=== PATIENT | male | born 1980 ===

== ENCOUNTER 2019-03-18 14:42 | Inpatient (IN) | payer OTHER ==
[~2019-03-18 14:42] MED LIST: ISOVUE-370 76%-LOCM 1 ML ONE
[2019-03-18 16:07] LABS: Hemoglobin 14.3 g/dL (14.0-18.0); Mean Corpuscular HGB CONC 33.5 g/dL (32.0-36.0); Mean Corpuscular Hemoglobin 30.5 pg (27.0-31.0); Mean Corpuscular Volume 91.2 fL (78.0-98.0); Mean Platelet Volume 7.7 fL (7.4-10.4); Platelet Count 417 thou/uL (130-400); White Blood Cell (WBC) Count 24.4 thou/uL (4.8-10.8)
[2019-03-18 16:15] LABS: Bilirubin Negative (Negative); Blood, Urine Negative (Negative); Clarity Clear (Clear); Glucose, Urine (Dipstick) 100 mg/dL (Negative); Leukocyte Negative (Negative); Nitrite Negative (Negative); Protein, Urine (Dipstick) 30 mg/dL (Neg-Trace); Urobilinogen > or = 8.0 mg/dL (0.2-1.0)
[2019-03-18 16:21] LABS: ALT (SGPT) 27 U/L (8-55); AST (SGOT) 18 U/L (5-34); Albumin 3.9 g/dL (3.5-5.0); Alkaline Phosphatase 82 U/L (40-150); Anion Gap 12 mmol/L (10-20); BUN (Urea Nitrogen) 13 mg/dL (8.9-20.6); Bilirubin, Total 1.4 mg/dL (0.2-1.2); Calc. Creatinine Clearance 0 mL/min (70-130); Calcium 9.8 mg/dL (7.8-10.44); Carbon Dioxide 29 mmol/L (22-29); Chloride 103 mmol/L (98-107); Estimated GFR-MDRD 74; Globulin 4.1 g/dL (2.4-3.5); Glucose 89 mg/dL (70-105); Lipase 7 U/L (8-78); Potassium 4.5 mmol/L (3.5-5.1); Sodium 139 mmol/L (136-145)
[2019-03-18 16:24] LABS: RBC/HPF 0-3 HPF (0-3); WBC/HPF 0-3 HPF (0-3)
[2019-03-18 16:25] LABS: Bacteria/HPF None Seen HPF (None Seen); Hyaline Casts/LPF NONE SEEN LPF (0-3 Hyaline); Squamous Epithelial None Seen HPF (0-3)
[2019-03-18 16:28] LABS: Band 15 % (5-11); Lymphocytes 16 % (21-51); MDiff Complete? YES; Monocytes 3 % (0-10); Neutrophil 66 % (42-75); Platelet Morphology Comment Appears Increased
[2019-03-18] MEDS ORDERED: Ondansetron PF 4 MG/2 ML Vial ONE (17:12)
[2019-03-18] MEDS ORDERED: Ketorolac Tromethamine 30 MG/ML VIAL ONE (17:12)
--- NOTE | 2019-03-18 17:13 | CT ---
CT abdomen and pelvis with IV contrast HISTORY: Abdominal pain. Weakness. Fever. FINDINGS: Lung bases are clear. The left kidney and spleen are surgically absent. There are also post operative changes of the anterior abdominal wall. Metallic shrapnel in the left flank subcutaneous tissues. Centered deep within the anterior midline abdominal wall at the level of the umbilicus is a lobulated , moderately thick walled fluid collection containing a single tiny pocket of gas. It measures 4.3 cm length by 4.6 cm depth by 4.2 cm width and abuts the peritoneum. It does not extend into the abdom inal cavity. IMPRESSION: Anterior abdominal wall abscess, 4.6 cm, abutting the peritoneum but not extending into t he abdomen. Status post splenectomy and left nephrectomy.
[2019-03-18] MEDS ORDERED: MEROPENEM 1 GM/50 ML BAG IVPB SCH (17:45)
[2019-03-18] MEDS ORDERED: Morphine 4 MG/ML VIAL ONE (18:10)
[2019-03-18] MEDS ORDERED: Ondansetron PF 4 MG/2 ML Vial IVP PRN ×2 (19:32→21:34)
[2019-03-18] MEDS ORDERED: Acetaminophen 325 MG TAB PO PRN ×2 (19:32→21:34)
[2019-03-18] MEDS ORDERED: Ondansetron ODT 4 MG TAB SL PRN (19:32)
[2019-03-18] MEDS ORDERED: Sodium Chloride 0.9% 1,000 ML IV SCH (19:32)
[2019-03-18] MEDS ORDERED: Morphine 4 MG/ML VIAL SLOW IVP PRN (19:36)
[2019-03-18 20:00] VITALS: BMI 30.7
[2019-03-18] MEDS ORDERED: Ondansetron ODT 4 MG TAB PO PRN (21:34)
[2019-03-18] MEDS ORDERED: Senokot S 8.6-50 MG TAB PO PRN (21:34)
[2019-03-18] MEDS ORDERED: Calcium Carbonate 500 MG ChewTAB PO PRN (21:34)
[2019-03-18] MEDS ORDERED: Vancomycin HCl 1 GM in Premix Bag 1 BAG IVPB SCH (21:45)
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
[2019-03-18] MEDS: Sodium Chloride 0.9% 1,000 ML IV SCH (22:13)
[2019-03-18] MEDS: Piperacillin/Tazobactam 3.375 GM in Sodium Chloride 0.9% 100 ML IVPB SCH (22:24)
[2019-03-18] MEDS: Ketorolac Tromethamine 30 MG/ML VIAL IVP PRN (22:27)
[2019-03-18] MEDS ORDERED: Vancomycin HCl 2.5 GM in Sodium Chloride 0.9% 500 ML IVPB SCH (23:00)
[2019-03-19] MEDS: Morphine 2 MG/ML SYRINGE SLOW IVP PRN ×2 (00:11→04:14)
[2019-03-19] MEDS ORDERED: MEROPENEM 1 GM/50 ML 1 GM in Premix Bag 1 BAG IVPB SCH (02:00)
[2019-03-19] MEDS: Piperacillin/Tazobactam 3.375 GM in Sodium Chloride 0.9% 100 ML IVPB SCH ×4 (04:13→21:05)
[2019-03-19 04:47] LABS: Prothrombin Time 13.7 SEC (12.0-14.7)
[2019-03-19 04:48] LABS: PTT 31.8 SEC (22.9-36.1)
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
[2019-03-19 05:21] LABS: Band 4 % (5-11); Eosinophils 1 % (0-10); Hemoglobin 12.8 g/dL (14.0-18.0); Lymphocytes 34 % (21-51); MDiff Complete? YES; Mean Corpuscular HGB CONC 33.1 g/dL (32.0-36.0); Mean Corpuscular Hemoglobin 30.4 pg (27.0-31.0); Mean Corpuscular Volume 91.9 fL (78.0-98.0); Mean Platelet Volume 7.9 fL (7.4-10.4); Monocytes 9 % (0-10); Neutrophil 52 % (42-75); Platelet Count 375 thou/uL (130-400); RBC Distribution Width 12.1 % (11.5-14.5); Red Blood Cell (RBC) Count 4.21 mill/uL (4.70-6.10); White Blood Cell (WBC) Count 22.9 thou/uL (4.8-10.8)
[2019-03-19 05:28] LABS: ALT (SGPT) 20 U/L (8-55); AST (SGOT) 13 U/L (5-34); Albumin 3.1 g/dL (3.5-5.0); Alkaline Phosphatase 73 U/L (40-150); Anion Gap 12 mmol/L (10-20); BUN (Urea Nitrogen) 14 mg/dL (8.9-20.6); Calc. Creatinine Clearance 138 mL/min (70-130); Carbon Dioxide 23 mmol/L (22-29); Chloride 105 mmol/L (98-107); Estimated GFR-MDRD 79; Globulin 3.1 g/dL (2.4-3.5); Glucose 113 mg/dL (70-105); Potassium 3.9 mmol/L (3.5-5.1); Protein, Total 6.2 g/dL (6.0-8.3); Sodium 136 mmol/L (136-145)
[2019-03-19] MEDS ORDERED: Bisacodyl 10 MG SUPP PR PRN (08:20)
[2019-03-19] MEDS ORDERED: Artificial Tears 18 DROP/0.9 ML EA EYE PRN (08:20)
[2019-03-19] MEDS ORDERED: Diabetic Tussin 200 MG/10 ML UDCUP PO PRN (08:20)
[2019-03-19] MEDS ORDERED: hydrALAZINE 20 MG/ML VIAL SLOW IVP PRN (08:20)
[2019-03-19] MEDS ORDERED: Cepastat Lozenges 1 LOZ PO PRN (08:20)
[2019-03-19] MEDS ORDERED: Loratadine 10 MG TAB PO PRN (08:20)
[2019-03-19] MEDS ORDERED: Sodium Chloride 0.65% Nasal 44 ML BOT EA NARE PRN (08:20)
[2019-03-19] MEDS: Ketorolac Tromethamine 30 MG/ML VIAL IVP PRN (08:55)
[2019-03-19] MEDS: Saccharomyces boulardii 250 MG CAP PO SCH (08:59)
[2019-03-19] MEDS: Morphine 4 MG/ML VIAL SLOW IVP PRN ×2 (09:38→22:45)
[2019-03-19] MEDS ORDERED: Fentanyl 100 MCG/2 ML VIAL ONE (10:25)
[2019-03-19] MEDS ORDERED: Sodium Bicarbonate 2.5 MEQ/5 ML VIAL ONE (10:25)
[2019-03-19] MEDS ORDERED: Midazolam HCl 2 mg/2 ml Vial ONE (10:25)
--- NOTE | 2019-03-19 11:12 | PDOC.GSPN ---
Surgery Progress Note: Subj - Subjective Narrative: Stable overnight. Going for percutaneous aspiration versus drain placement today. White count slightly down. No new recommendations. We'll follow-up after drain placement. Surgery Progress Note: Obj - Vital signs Vital signs: Vital Signs - Most Recent Temp Pulse Resp BP Pulse Ox 98.7 F 80 20 123/61 96 03/19/19 08:00 03/19/19 08:00 03/19/19 08:00 03/19/19 08:00 03/19/19 08:00 Surgery Progress Note: Results - Labs Result Diagrams: 03/19/19 04:04 03/19/19 04:04 Lab results: Laboratory Results - last 24 hr 03/19/19 03/19/19 03/19/19 04:04 04:04 04:04 WBC 22.9 H RBC 4.21 L Hgb 12.8 L Hct 38.7 L MCV 91.9 MCH 30.4 MCHC 33.1 RDW 12.1 Plt Count 375 MPV 7.9 Neutrophils % (Manual) 52 Band Neuts % (Manual) 4 L Lymphocytes % (Manual) 34 Monocytes % (Manual) 9 Eosinophils % (Manual) 1 PT 13.7 INR 1.0 APTT 31.8 Sodium 136 Potassium 3.9 Chloride 105 Carbon Dioxide 23 Anion Gap 12 BUN 14 Creatinine 1.06 Estimated GFR (MDRD) 79 Glucose 113 H Calcium 8.0 Total Bilirubin 1.0 AST 13 ALT 20 Alkaline Phosphatase 73 Serum Total Protein 6.2 Albumin 3.1 L Globulin 3.1 Albumin/Globulin Ratio 1.0 L
[2019-03-19] MEDS: Vancomycin HCl 1.5 GM in Sodium Chloride 0.9% 250 ML 300 ML IVPB SCH ×2 (11:15→22:40)
[2019-03-19] MEDS: Sodium Chloride 0.9% 1,000 ML IV SCH ×2 (11:18→21:12)
--- NOTE | 2019-03-19 11:48 | PDOC.PN ---
- Subjective Encounter Start Date: 03/19/19 Encounter Start Time: 07:00 -: old records requested/rev pt has abdominal wall cellulitis and abscess, he has pain at that location, no fever, his wbc count is reduced - Objective Resuscitation Status - Order Detail: 03/18/19 21:34 Resuscitation Status Routine Resuscitation Status: FULL: Full Resuscitation MAR Reviewed: Yes Vital Signs & Weight: Vital Signs (12 hours) Temp Pulse Resp BP Pulse Ox 03/19/19 08:00 98.7 F 80 20 123/61 96 03/19/19 04:30 99.4 F 91 18 125/58 L 95 03/19/19 00:24 98.4 F 77 18 124/68 97 Weight Weight 226 lb 3.108 oz I&O: 03/18/19 03/19/19 03/20/19 06:59 06:59 06:59 Intake Total 1934 Balance 1934 Result Diagrams: 03/19/19 04:04 03/19/19 04:04 Radiology Reviewed by me: Yes (CT abdomen noted) Phys Exam - Physical Examination Constitutional: NAD HEENT: moist MMs, sclera anicteric Neck: no JVD, supple Respiratory: no wheezing, no rales, no rhonchi Cardiovascular: RRR, no significant murmur, no rub Gastrointestinal: soft, no distention, positive bowel sounds abdominal wall cellulitis and abscess Musculoskeletal: no edema, pulses present Neurological: non-focal, normal sensation, moves all 4 limbs Lymphatic: no nodes Psychiatric: normal affect, A&O x 3 Skin: no rash, normal turgor Dx/Plan (1) Cellulitis, abdominal wall Code(s): L03.311 - CELLULITIS OF ABDOMINAL WALL Status: Acute (2) Sepsis Code(s): A41.9 - SEPSIS, UNSPECIFIED ORGANISM Status: Acute (3) Diabetes type 2, controlled Code(s): E11.9 - TYPE 2 DIABETES MELLITUS WITHOUT COMPLICATIONS Status: Chronic (4) Obesity (BMI 30.0-34.9) Code(s): E66.9 - OBESITY, UNSPECIFIED Status: Chronic - Plan cont current plan of care, continue antibiotics * pt had CT guided drain placement * surgery following * continue empiric vancomycin and zosyn * pain control * repeat labs tomorrow. Review of Systems - Review of Systems ENT: negative: Ear Pain, Ear Discharge, Nose Pain, Nose Discharge, Nose Congestion, Mouth Pain, Mouth Swelling, Throat Pain, Throat Swelling, Other Respiratory: negative: Cough, Dry, Shortness of Breath, Hemoptysis, SOB with Excertion, Pleuritic Pain, Sputum, Wheezing Cardiovascular: negative: chest pain, palpitations, orthopnea, paroxysmal nocturnal dyspnea, edema, light headedness, other Gastrointestinal: Abdominal Pain. negative: Nausea, Vomiting, Diarrhea, Constipation, Melena, Hematochezia, Other Genitourinary: negative: Dysuria, Frequency, Incontinence, Hematuria, Retention , Other Musculoskeletal: negative: Neck Pain, Shoulder Pain, Arm Pain, Back Pain, Hand Pain, Leg Pain, Foot Pain, Other Skin: negative: Rash, Lesions, [place], Bruising, Other - Medications/Allergies Allergies/Adverse Reactions: Allergies Allergy/AdvReac Type Severity Reaction Status Date / Time clindamycin Allergy Emesis Verified 03/19/19 11:14 Medications: Current Medications Acetaminophen (Tylenol) 650 mg PO Q4H PRN PRN Reason: Headache/Fever/Mild Pain (1-3) Hydrocodone Bitart/Acetaminophen ([place] 5/325) 1 tab PO Q4H PRN PRN Reason: Moderate Pain (4-6) Artificial Tears (Tears Naturale) 2 drop EA EYE PRN PRN PRN Reason: Dry Eyes Bisacodyl (Dulcolax) 10 mg DC DAILYPRN PRN PRN Reason: Constipation Calcium Carbonate (Tums) 1,000 mg PO Q4H PRN PRN Reason: Heartburn or Indigestion Guaifenesin (Robitussin Sf) 200 mg PO Q4H PRN PRN Reason: Cough Hydralazine HCl (Apresoline) 10 mg SLOW IVP Q4H PRN PRN Reason: SBP > 180 and HR < 70 Sodium Chloride (Normal Saline 0.9%) 1,000 mls @ 75 mls/hr IV .[id number] [facility] Last Admin: 03/19/19 11:18 Dose: Not Given Piperacillin Sod/Tazobactam (Sod 3.375 gm/ Sodium Chloride) 100 mls @ 200 mls/ hr IVPB 0400,1000,1600,2200 [facility] Last Admin: 03/19/19 09:39 Dose: 100 mls Vancomycin HCl 1.5 gm/ Sodium (Chloride) 300 mls @ 200 mls/hr IVPB 1100,2300 [facility] Last Admin: 03/19/19 11:15 Dose: 300 mls Loperamide HCl (Imodium) 2 mg PO PRN PRN PRN Reason: Diarrhea/Loose Stools Loratadine (Claritin) 10 mg PO DAILYPRN PRN PRN Reason: Sinus Symptoms Miscellaneous Medication (Pharmacy To Dose) 1 each IVPB PRN PRN PRN Reason: Pharmacy to dose Morphine Sulfate (Morphine) 4 mg SLOW IVP Q4H PRN PRN Reason: Severe Pain (7-10) Last Admin: 03/19/19 09:38 Dose: 4 mg Ondansetron HCl (Zofran Odt) 4 mg PO Q6H PRN PRN Reason: Nausea/Vomiting Ondansetron HCl (Zofran) 4 mg IVP Q6H PRN PRN Reason: Nausea/Vomiting Saccharomyces Boulardii (Florastor) 250 mg PO DAILY [facility] Last Admin: 03/19/19 08:59 Dose: Not Given Senna/Docusate Sodium (Senokot S) 2 tab PO BID PRN PRN Reason: Constipation Sodium Chloride (Flush - Normal Saline) 10 ml IVF Q12HR [facility] Last Admin: 03/19/19 08:59 Dose: 10 ml Sodium Chloride (Flush - Normal Saline) 10 ml IVF PRN PRN PRN Reason: Saline Flush Sodium Chloride ([place] Nasal [place] 0.65%) 0 ml EA NARE QIDPRN PRN PRN Reason: Nasal Congestion Throat Lozenges (Cepastat Lozenges) 1 sumeet PO Q2H PRN PRN Reason: Sore Throat Zolpidem Tartrate (Ambien) 5 mg PO HSPRN PRN PRN Reason: Insomnia
--- NOTE | 2019-03-19 11:52 | CT ---
EXAM: CT Peritoneal Abscess Drainage PROVIDED CLINICAL HISTORY: Anterior abdominal wall abscess. Drainage was requested COMPARISON: CT abdomen and pelvis on 03/18/2019. TECHNIQUE: After informed consent was obtained, patient was placed on the CT scan table in the supine position. Limited noncontrasted CT scan was obtained through the level of the abdominal wall fluid collection with grid localizer in place. An area was marked, and the area was then meticulously prepped and drap ed in usual sterile fashion. Skin and subcutaneous tissues were infiltrated with buffered 1% lidocaine for local anesthesia. A sma ll skin incision was made. A 19-gauge [place]h needle with 5 [place] catheter was advanced into the collection. Placement of the catheter within the fluid collection was confirmed with axial noncontras suzanne CT images. The catheter was exchanged over a 0.035 inch Amplatz guidewire for an 8 [place] tissue dilator followe d by placement of a 6 [place] cope loop all-purpose drainage catheter. Purulent material was aspirated. Positioning of the catheter within the collection was confirmed with axial noncontrasted C T images. Approximately 25 mL of purulent material was aspirated. The catheter was flushed and placed to gravity drainage. The catheter was sutured in place utilizing 2-0 Ethilon suture material. A dry sterile dressing was placed. The patient tolerated the procedure well and without immediate complication. IMPRESSION: Technically successful CT-guided percutaneous abscess drainage of an abdominal wall fluid collection. 25 mL of purulent fluid was aspirated. Specimen was sent for labs.
[2019-03-19 12:08] LABS: Body Fluid Source Abscess Fluid; Clarity Cloudy/Turbid (Clear)
[2019-03-19 12:09] LABS: BF Color Brown; Tube # EDTA
[2019-03-19] MEDS: HYDROcodone/Acetaminophen 5/325 mg Tablet PO PRN (16:28)
[2019-03-20] MEDS: Zolpidem Tartrate 5 MG TAB PO PRN ×2 (00:04→21:29)
[2019-03-20] MEDS: Morphine 4 MG/ML VIAL SLOW IVP PRN ×4 (04:33→21:29)
[2019-03-20] MEDS: Piperacillin/Tazobactam 3.375 GM in Sodium Chloride 0.9% 100 ML IVPB SCH ×4 (04:39→21:28)
[2019-03-20 05:11] LABS: Band 5 % (5-11); Eosinophils 6 % (0-10); Hemoglobin 12.2 g/dL (14.0-18.0); Lymphocytes 40 % (21-51); MDiff Complete? YES; Mean Corpuscular HGB CONC 32.8 g/dL (32.0-36.0); Mean Corpuscular Volume 91.4 fL (78.0-98.0); Mean Platelet Volume 7.7 fL (7.4-10.4); Monocytes 4 % (0-10); Neutrophil 45 % (42-75); Platelet Count 394 thou/uL (130-400); Platelet Morphology Comment Appears Adequate; RBC Distribution Width 11.9 % (11.5-14.5); Red Blood Cell (RBC) Count 4.08 mill/uL (4.70-6.10); White Blood Cell (WBC) Count 16.7 thou/uL (4.8-10.8)
[2019-03-20 05:33] LABS: BUN (Urea Nitrogen) 12 mg/dL (8.9-20.6); CRP (Inflammatory) 10.47 mg/dL (= or < 0.5); Calc. Creatinine Clearance 171 mL/min (70-130); Calcium 7.8 mg/dL (7.8-10.44); Carbon Dioxide 22 mmol/L (22-29); Chloride 107 mmol/L (98-107); Estimated GFR-MDRD Greater than 90; Glucose 137 mg/dL (70-105); Potassium 3.8 mmol/L (3.5-5.1); Sodium 135 mmol/L (136-145)
[2019-03-20 05:36] LABS: Anion Gap 10 mmol/L (10-20)
[2019-03-20] MEDS: Saccharomyces boulardii 250 MG CAP PO SCH (09:02)
[2019-03-20 10:28] LABS: Vancomycin, Trough 13.9 ug/mL
--- NOTE | 2019-03-20 11:09 | PDOC.PN ---
- Subjective Encounter Start Date: 03/20/19 Encounter Start Time: 07:00 Patient seen and examined. No new complaints. No overnight events - Objective Resuscitation Status - Order Detail: 03/18/19 21:34 Resuscitation Status Routine Resuscitation Status: FULL: Full Resuscitation MAR Reviewed: Yes Vital Signs & Weight: Vital Signs (12 hours) Temp Pulse Resp BP Pulse Ox 03/20/19 08:00 97 03/20/19 07:35 98.7 F 75 16 102/57 L 97 03/20/19 07:03 98.7 F 75 16 102/57 L 97 03/20/19 05:31 95 03/20/19 04:00 99.1 F 78 16 135/79 94 L 03/19/19 23:50 99.1 F 79 16 127/69 98 Weight Weight 226 lb 3.108 oz I&O: 03/19/19 03/20/19 03/21/19 06:59 06:59 06:59 Intake Total 1935 1800 Output Total 50 Balance 1935 1750 Result Diagrams: 03/20/19 04:18 03/20/19 04:18 Phys Exam - Physical Examination Constitutional: NAD HEENT: PERRLA, moist MMs, sclera anicteric Neck: no JVD, supple Respiratory: no wheezing, no rales, no rhonchi Cardiovascular: RRR, no significant murmur, no rub Gastrointestinal: soft, non-tender, no distention, positive bowel sounds drain in place Musculoskeletal: no edema, pulses present Neurological: non-focal, normal sensation, moves all 4 limbs Lymphatic: no nodes Psychiatric: normal affect, A&O x 3 Skin: no rash, normal turgor Dx/Plan (1) Cellulitis, abdominal wall Code(s): L03.311 - CELLULITIS OF ABDOMINAL WALL Status: Acute Comment: with abscess, s/p CT guiaded abscess drainage (2) Sepsis Code(s): A41.9 - SEPSIS, UNSPECIFIED ORGANISM Status: Acute (3) Diabetes type 2, controlled Code(s): E11.9 - TYPE 2 DIABETES MELLITUS WITHOUT COMPLICATIONS Status: Chronic (4) Obesity (BMI 30.0-34.9) Code(s): E66.9 - OBESITY, UNSPECIFIED Status: Chronic - Plan cont current plan of care, continue antibiotics * wbc count decreasing, his pain improving, so far culture from aspiration negative, currently on empiric antibiotic with vancomycin and zosyn * medication reviewed as below * symptomatic treatment * follow culture. Review of Systems - Review of Systems ENT: negative: Ear Pain, Ear Discharge, Nose Pain, Nose Discharge, Nose Congestion, Mouth Pain, Mouth Swelling, Throat Pain, Throat Swelling, Other Respiratory: negative: Cough, Dry, Shortness of Breath, Hemoptysis, SOB with Excertion, Pleuritic Pain, Sputum, Wheezing Cardiovascular: negative: chest pain, palpitations, orthopnea, paroxysmal nocturnal dyspnea, edema, light headedness, other Gastrointestinal: negative: Nausea, Vomiting, Abdominal Pain, Diarrhea, Constipation, Melena, Hematochezia, Other Genitourinary: negative: Dysuria, Frequency, Incontinence, Hematuria, Retention , Other Musculoskeletal: negative: Neck Pain, Shoulder Pain, Arm Pain, Back Pain, Hand Pain, Leg Pain, Foot Pain, Other - Medications/Allergies Allergies/Adverse Reactions: Allergies Allergy/AdvReac Type Severity Reaction Status Date / Time clindamycin Allergy Emesis Verified 03/19/19 11:14 Medications: Current Medications Acetaminophen (Tylenol) 650 mg PO Q4H PRN PRN Reason: Headache/Fever/Mild Pain (1-3) Hydrocodone Bitart/Acetaminophen ([place] 5/325) 1 tab PO Q4H PRN PRN Reason: Moderate Pain (4-6) Last Admin: 03/19/19 16:28 Dose: 1 tab Artificial Tears (Tears Naturale) 2 drop EA EYE PRN PRN PRN Reason: Dry Eyes Bisacodyl (Dulcolax) 10 mg AL DAILYPRN PRN PRN Reason: Constipation Calcium Carbonate (Tums) 1,000 mg PO Q4H PRN PRN Reason: Heartburn or Indigestion Guaifenesin (Robitussin Sf) 200 mg PO Q4H PRN PRN Reason: Cough Hydralazine HCl (Apresoline) 10 mg SLOW IVP Q4H PRN PRN Reason: SBP > 180 and HR < 70 Sodium Chloride (Normal Saline 0.9%) 1,000 mls @ 75 mls/hr IV .[id number] [facility] Last Admin: 03/19/19 21:12 Dose: 1,000 mls Piperacillin Sod/Tazobactam (Sod 3.375 gm/ Sodium Chloride) 100 mls @ 200 mls/ hr IVPB 0400,1000,1600,2200 [facility] Last Admin: 03/20/19 09:03 Dose: 100 mls Vancomycin HCl 1.5 gm/ Sodium (Chloride) 300 mls @ 200 mls/hr IVPB 1100,2300 [facility] Last Admin: 03/19/19 22:40 Dose: 300 mls Loperamide HCl (Imodium) 2 mg PO PRN PRN PRN Reason: Diarrhea/Loose Stools Loratadine (Claritin) 10 mg PO DAILYPRN PRN PRN Reason: Sinus Symptoms Miscellaneous Medication (Pharmacy To Dose) 1 each IVPB PRN PRN PRN Reason: Pharmacy to dose Morphine Sulfate (Morphine) 4 mg SLOW IVP Q4H PRN PRN Reason: Severe Pain (7-10) Last Admin: 03/20/19 09:09 Dose: 4 mg Ondansetron HCl (Zofran Odt) 4 mg PO Q6H PRN PRN Reason: Nausea/Vomiting Ondansetron HCl (Zofran) 4 mg IVP Q6H PRN PRN Reason: Nausea/Vomiting Saccharomyces Boulardii (Florastor) 250 mg PO DAILY [facility] Last Admin: 03/20/19 09:02 Dose: 250 mg Senna/Docusate Sodium (Senokot S) 2 tab PO BID PRN PRN Reason: Constipation Sodium Chloride (Flush - Normal Saline) 10 ml IVF Q12HR [facility] Last Admin: 03/20/19 09:03 Dose: 10 ml Sodium Chloride (Flush - Normal Saline) 10 ml IVF PRN PRN PRN Reason: Saline Flush Last Admin: 03/19/19 21:17 Dose: 10 ml Sodium Chloride ([place] Nasal [place] 0.65%) 0 ml EA NARE QIDPRN PRN PRN Reason: Nasal Congestion Throat Lozenges (Cepastat Lozenges) 1 sumeet PO Q2H PRN PRN Reason: Sore Throat Zolpidem Tartrate (Ambien) 5 mg PO HSPRN PRN PRN Reason: Insomnia Last Admin: 03/20/19 00:04 Dose: 5 mg
[2019-03-20] MEDS: Vancomycin HCl 1.5 GM in Sodium Chloride 0.9% 250 ML 300 ML IVPB SCH ×2 (11:19→22:35)
[2019-03-20] MEDS: HYDROcodone/Acetaminophen 5/325 mg Tablet PO PRN (12:51)
[2019-03-20] MEDS: Sodium Chloride 0.9% 1,000 ML IV SCH (18:06)
--- NOTE | 2019-03-20 20:39 | PDOC.GSPN ---
Surgery Progress Note: Subj - Subjective Narrative: Patient is doing well since having his drain placed. He is not having much pain. The nurses or flushing the drain and there hasn't been much output. No fevers or chills. White count is down. He has much less tenderness in the central abdomen and the erythema seems to be resolving. We will continue with antibiotics and drainage. Dr. Gaines will be covering over the weekend. Surgery Progress Note: Obj - Vital signs Vital signs: Vital Signs - Most Recent Temp Pulse Resp BP Pulse Ox 98.4 F 72 16 121/67 96 03/20/19 19:05 03/20/19 19:05 03/20/19 19:05 03/20/19 19:05 03/20/19 19:05 Surgery Progress Note: Results - Labs Result Diagrams: 03/20/19 04:18 03/20/19 04:18 Lab results: Laboratory Results - last 24 hr 03/20/19 10:01 Vancomycin Trough 13.9
[2019-03-20] MEDS: Loperamide HCl 2 MG CAP PO PRN (21:29)
[2019-03-21] MEDS: HYDROcodone/Acetaminophen 5/325 mg Tablet PO PRN ×5 (01:22→23:06)
[2019-03-21] MEDS: Morphine 4 MG/ML VIAL SLOW IVP PRN ×2 (02:09→21:07)
[2019-03-21] MEDS: Piperacillin/Tazobactam 3.375 GM in Sodium Chloride 0.9% 100 ML IVPB SCH ×4 (04:55→21:03)
[2019-03-21] MEDS: Saccharomyces boulardii 250 MG CAP PO SCH (08:08)
[2019-03-21] MEDS: Sodium Chloride 0.9% 1,000 ML IV SCH ×2 (10:57→23:20)
[2019-03-21] MEDS: Vancomycin HCl 1.5 GM in Sodium Chloride 0.9% 250 ML 300 ML IVPB SCH ×2 (10:59→23:09)
[2019-03-21 11:03] LABS: Vancomycin, Trough 13.9 ug/mL
--- NOTE | 2019-03-21 11:40 | PDOC.PN ---
- Subjective Encounter Start Date: 03/21/19 Encounter Start Time: 07:00 pt has drain in place, only little amount draining through drain, no fever, his abdominal pain has reduced, overall feeling better - Objective Resuscitation Status - Order Detail: 03/18/19 21:34 Resuscitation Status Routine Resuscitation Status: FULL: Full Resuscitation MAR Reviewed: Yes Vital Signs & Weight: Vital Signs (12 hours) Temp Pulse Resp BP Pulse Ox 03/21/19 08:00 97.9 F 65 18 128/67 94 L Weight Weight 226 lb 3.108 oz I&O: 03/20/19 03/21/19 03/22/19 06:59 06:59 06:59 Intake Total 1800 2000 Output Total 50 30 Balance 1750 1970 Result Diagrams: 03/20/19 04:18 03/20/19 04:18 Phys Exam - Physical Examination Constitutional: NAD HEENT: PERRLA, moist MMs, sclera anicteric Neck: no JVD, supple Respiratory: no wheezing, no rales, no rhonchi Cardiovascular: RRR, no significant murmur, no rub Gastrointestinal: soft, non-tender, no distention, positive bowel sounds drain in place, no inducation, reduced erythema Musculoskeletal: no edema, pulses present Neurological: non-focal, normal sensation, moves all 4 limbs Lymphatic: no nodes Psychiatric: normal affect, A&O x 3 Skin: no rash, normal turgor Dx/Plan (1) Cellulitis, abdominal wall Code(s): L03.311 - CELLULITIS OF ABDOMINAL WALL Status: Acute Comment: with abscess, s/p CT guiaded abscess drainage (2) Sepsis Code(s): A41.9 - SEPSIS, UNSPECIFIED ORGANISM Status: Acute (3) Diabetes type 2, controlled Code(s): E11.9 - TYPE 2 DIABETES MELLITUS WITHOUT COMPLICATIONS Status: Chronic (4) Obesity (BMI 30.0-34.9) Code(s): E66.9 - OBESITY, UNSPECIFIED Status: Chronic - Plan cont current plan of care, continue antibiotics * continue vancomycin and zosyn * continue drain as per surgeon * follow on culture * pain controlled * medication reviewed as below * symptomatic treatment. Review of Systems - Review of Systems ENT: negative: Ear Pain, Ear Discharge, Nose Pain, Nose Discharge, Nose Congestion, Mouth Pain, Mouth Swelling, Throat Pain, Throat Swelling, Other Respiratory: negative: Cough, Dry, Shortness of Breath, Hemoptysis, SOB with Excertion, Pleuritic Pain, Sputum, Wheezing Cardiovascular: negative: chest pain, palpitations, orthopnea, paroxysmal nocturnal dyspnea, edema, light headedness, other Gastrointestinal: negative: Nausea, Vomiting, Abdominal Pain, Diarrhea, Constipation, Melena, Hematochezia, Other Genitourinary: negative: Dysuria, Frequency, Incontinence, Hematuria, Retention , Other Musculoskeletal: negative: Neck Pain, Shoulder Pain, Arm Pain, Back Pain, Hand Pain, Leg Pain, Foot Pain, Other - Medications/Allergies Allergies/Adverse Reactions: Allergies Allergy/AdvReac Type Severity Reaction Status Date / Time clindamycin Allergy Emesis Verified 03/19/19 11:14 Medications: Current Medications Acetaminophen (Tylenol) 650 mg PO Q4H PRN PRN Reason: Headache/Fever/Mild Pain (1-3) Hydrocodone Bitart/Acetaminophen ([place] 5/325) 1 tab PO Q4H PRN PRN Reason: Moderate Pain (4-6) Last Admin: 03/21/19 08:08 Dose: 1 tab Artificial Tears (Tears Naturale) 2 drop EA EYE PRN PRN PRN Reason: Dry Eyes Bisacodyl (Dulcolax) 10 mg ID DAILYPRN PRN PRN Reason: Constipation Calcium Carbonate (Tums) 1,000 mg PO Q4H PRN PRN Reason: Heartburn or Indigestion Guaifenesin (Robitussin Sf) 200 mg PO Q4H PRN PRN Reason: Cough Hydralazine HCl (Apresoline) 10 mg SLOW IVP Q4H PRN PRN Reason: SBP > 180 and HR < 70 Sodium Chloride (Normal Saline 0.9%) 1,000 mls @ 75 mls/hr IV .[id number] [facility] Last Admin: 03/21/19 10:57 Dose: 1,000 mls Piperacillin Sod/Tazobactam (Sod 3.375 gm/ Sodium Chloride) 100 mls @ 200 mls/ hr IVPB 0400,1000,1600,2200 [facility] Last Admin: 03/21/19 10:30 Dose: 100 mls Vancomycin HCl 1.5 gm/ Sodium (Chloride) 300 mls @ 200 mls/hr IVPB 1100,2300 [facility] Last Admin: 03/21/19 10:59 Dose: 300 mls Loperamide HCl (Imodium) 2 mg PO PRN PRN PRN Reason: Diarrhea/Loose Stools Last Admin: 03/20/19 21:29 Dose: 2 mg Loratadine (Claritin) 10 mg PO DAILYPRN PRN PRN Reason: Sinus Symptoms Miscellaneous Medication (Pharmacy To Dose) 1 each IVPB PRN PRN PRN Reason: Pharmacy to dose Morphine Sulfate (Morphine) 4 mg SLOW IVP Q4H PRN PRN Reason: Severe Pain (7-10) Last Admin: 03/21/19 02:09 Dose: 4 mg Ondansetron HCl (Zofran Odt) 4 mg PO Q6H PRN PRN Reason: Nausea/Vomiting Ondansetron HCl (Zofran) 4 mg IVP Q6H PRN PRN Reason: Nausea/Vomiting Saccharomyces Boulardii (Florastor) 250 mg PO DAILY [facility] Last Admin: 03/21/19 08:08 Dose: 250 mg Senna/Docusate Sodium (Senokot S) 2 tab PO BID PRN PRN Reason: Constipation Sodium Chloride (Flush - Normal Saline) 10 ml IVF Q12HR [facility] Last Admin: 03/21/19 08:08 Dose: 10 ml Sodium Chloride (Flush - Normal Saline) 10 ml IVF PRN PRN PRN Reason: Saline Flush Last Admin: 03/19/19 21:17 Dose: 10 ml Sodium Chloride ([place] Nasal [place] 0.65%) 0 ml EA NARE QIDPRN PRN PRN Reason: Nasal Congestion Throat Lozenges (Cepastat Lozenges) 1 sumeet PO Q2H PRN PRN Reason: Sore Throat Zolpidem Tartrate (Ambien) 5 mg PO HSPRN PRN PRN Reason: Insomnia Last Admin: 03/20/19 21:29 Dose: 5 mg
--- NOTE | 2019-03-21 16:05 | PRG ---
DATE OF SERVICE: 03/21/2019 SUBJECTIVE: I am seeing Mr. Juárez, a 38-year-old patient on behalf of Dr. Hastings, the consulting surgeon. The patient is 2 days status post percutaneous drainage of a deep intraabdominal wall abscess. Today, the patient reports feeling better. He denies any fevers or chills. He denies any abdominal pain. He is tolerating diet, having normal bowel and urinary function. OBJECTIVE: VITAL SIGNS: His vital signs remained stable today with blood pressure 128/67, pulse 65, respiratory rate is 18, temperature 97.9 degrees Fahrenheit, and oxygen saturation 94% on room air. ABDOMEN: Soft, nontender, and nondistended. The percutaneous drainage catheter remains in place and returns scant purulent fluid. Microbiology from 03/19/2019 from the abscess drainage reveals many gram-negative rods, many gram-positive rods, and few gram-positive cocci in clusters. The patient is on Zosyn intravenously. IMPRESSION: Deep anterior abdominal wall abscess postop day #2, status post percutaneous drainage. PLAN: Continue IV antibiotics until final sensitivity studies have been returned. There is no further surgical indication for this patient at this time. Job ID: [id number]
[2019-03-21 20:01] VITALS: TEMP 98.2
[2019-03-21] MEDS: Loperamide HCl 2 MG CAP PO PRN (21:03)
[2019-03-21] MEDS: Zolpidem Tartrate 5 MG TAB PO PRN (23:05)
[2019-03-22] MEDS: Piperacillin/Tazobactam 3.375 GM in Sodium Chloride 0.9% 100 ML IVPB SCH ×3 (04:27→15:34)
[2019-03-22] MEDS: Sodium Chloride 0.9% 1,000 ML IV SCH ×2 (04:28→08:14)
[2019-03-22 08:04] LABS: Hemoglobin 13.6 g/dL (14.0-18.0); Mean Corpuscular HGB CONC 32.2 g/dL (32.0-36.0); Mean Corpuscular Hemoglobin 29.3 pg (27.0-31.0); Mean Platelet Volume 7.3 fL (7.4-10.4); Platelet Count 560 thou/uL (130-400); RBC Distribution Width 11.9 % (11.5-14.5); Red Blood Cell (RBC) Count 4.65 mill/uL (4.70-6.10); White Blood Cell (WBC) Count 14.4 thou/uL (4.8-10.8)
[2019-03-22] MEDS: HYDROcodone/Acetaminophen 5/325 mg Tablet PO PRN ×2 (08:12→15:31)
[2019-03-22] MEDS: Saccharomyces boulardii 250 MG CAP PO SCH (08:12)
[2019-03-22 08:13] LABS: Anion Gap 11 mmol/L (10-20); BUN (Urea Nitrogen) 10 mg/dL (8.9-20.6); CRP (Inflammatory) 4.48 mg/dL (= or < 0.5); Calc. Creatinine Clearance 155 mL/min (70-130); Calcium 8.5 mg/dL (7.8-10.44); Carbon Dioxide 26 mmol/L (22-29); Chloride 104 mmol/L (98-107); Estimated GFR-MDRD 89; Glucose 100 mg/dL (70-105); Potassium 3.8 mmol/L (3.5-5.1); Sodium 137 mmol/L (136-145)
[2019-03-22 09:06] VITALS: BP 142/85
[2019-03-22 10:46] LABS: Eosinophils 10 % (0-10); Giant Platelets SLIGHT; Lymphocytes 44 % (21-51); MDiff Complete? YES; Monocytes 10 % (0-10); Neutrophil 36 % (42-75); Platelet Morphology Comment Appears Increased
[2019-03-22] MEDS: Vancomycin HCl 1.5 GM in Sodium Chloride 0.9% 250 ML 300 ML IVPB SCH (11:20)
--- NOTE | 2019-03-22 11:22 | PDOC.PN ---
- Subjective Encounter Start Date: 03/22/19 Encounter Start Time: 07:00 Patient seen and examined. No new complaints. No overnight events - Objective Resuscitation Status - Order Detail: 03/18/19 21:34 Resuscitation Status Routine Resuscitation Status: FULL: Full Resuscitation MAR Reviewed: Yes Vital Signs & Weight: Vital Signs (12 hours) Temp Pulse Resp BP Pulse Ox 03/22/19 08:00 98.2 F 69 18 142/85 H 95 Weight Weight 226 lb 3.108 oz I&O: 03/21/19 03/22/19 03/23/19 06:59 06:59 06:59 Intake Total 1999 Output Total 30 5 Balance 1969 - Result Diagrams: 03/22/19 07:48 03/22/19 07:48 Phys Exam - Physical Examination Constitutional: NAD HEENT: PERRLA, moist MMs, sclera anicteric Neck: no JVD, supple Respiratory: no wheezing, no rales, no rhonchi Cardiovascular: RRR, no significant murmur, no rub Gastrointestinal: soft, non-tender, no distention, positive bowel sounds drain in place Musculoskeletal: no edema, pulses present Neurological: non-focal, normal sensation, moves all 4 limbs Lymphatic: no nodes Psychiatric: normal affect, A&O x 3 Skin: no rash, normal turgor Dx/Plan (1) Cellulitis, abdominal wall Code(s): L03.311 - CELLULITIS OF ABDOMINAL WALL Status: Acute Comment: with abscess, s/p CT guiaded abscess drainage (2) Sepsis Code(s): A41.9 - SEPSIS, UNSPECIFIED ORGANISM Status: Acute (3) Diabetes type 2, controlled Code(s): E11.9 - TYPE 2 DIABETES MELLITUS WITHOUT COMPLICATIONS Status: Chronic (4) Obesity (BMI 30.0-34.9) Code(s): E66.9 - OBESITY, UNSPECIFIED Status: Chronic - Plan cont current plan of care, continue antibiotics * continue empiric vancomycin and zosyn * so far all culture negative * his drain output has much reduced, will ask surgeon to remove it if needed * once drain out, then will consider dc tomorrow on oral antibiotics * medication reviewed as below * symptomatic treatment. Review of Systems - Review of Systems ENT: negative: Ear Pain, Ear Discharge, Nose Pain, Nose Discharge, Nose Congestion, Mouth Pain, Mouth Swelling, Throat Pain, Throat Swelling, Other Respiratory: negative: Cough, Dry, Shortness of Breath, Hemoptysis, SOB with Excertion, Pleuritic Pain, Sputum, Wheezing Cardiovascular: negative: chest pain, palpitations, orthopnea, paroxysmal nocturnal dyspnea, edema, light headedness, other Gastrointestinal: negative: Nausea, Vomiting, Abdominal Pain, Diarrhea, Constipation, Melena, Hematochezia, Other Genitourinary: negative: Dysuria, Frequency, Incontinence, Hematuria, Retention , Other Musculoskeletal: negative: Neck Pain, Shoulder Pain, Arm Pain, Back Pain, Hand Pain, Leg Pain, Foot Pain, Other - Medications/Allergies Allergies/Adverse Reactions: Allergies Allergy/AdvReac Type Severity Reaction Status Date / Time clindamycin Allergy Emesis Verified 03/19/19 11:14 Medications: Current Medications Acetaminophen (Tylenol) 650 mg PO Q4H PRN PRN Reason: Headache/Fever/Mild Pain (1-3) Hydrocodone Bitart/Acetaminophen ([place] 5/325) 1 tab PO Q4H PRN PRN Reason: Moderate Pain (4-6) Last Admin: 03/22/19 08:12 Dose: 1 tab Artificial Tears (Tears Naturale) 2 drop EA EYE PRN PRN PRN Reason: Dry Eyes Bisacodyl (Dulcolax) 10 mg [place] DAILYPRN PRN PRN Reason: Constipation Calcium Carbonate (Tums) 1,000 mg PO Q4H PRN PRN Reason: Heartburn or Indigestion Guaifenesin (Robitussin Sf) 200 mg PO Q4H PRN PRN Reason: Cough Hydralazine HCl (Apresoline) 10 mg SLOW IVP Q4H PRN PRN Reason: SBP > 180 and HR < 70 Sodium Chloride (Normal Saline 0.9%) 1,000 mls @ 75 mls/hr IV .[id number] [facility] Last Admin: 03/22/19 08:14 Dose: 1,000 mls Piperacillin Sod/Tazobactam (Sod 3.375 gm/ Sodium Chloride) 100 mls @ 200 mls/ hr IVPB 0400,1000,1600,2200 [facility] Last Admin: 03/22/19 08:15 Dose: 100 mls Vancomycin HCl 1.5 gm/ Sodium (Chloride) 300 mls @ 200 mls/hr IVPB 1100,2300 [facility] Last Admin: 03/21/19 23:09 Dose: 300 mls Loperamide HCl (Imodium) 2 mg PO PRN PRN PRN Reason: Diarrhea/Loose Stools Last Admin: 03/21/19 21:03 Dose: 2 mg Loratadine (Claritin) 10 mg PO DAILYPRN PRN PRN Reason: Sinus Symptoms Miscellaneous Medication (Pharmacy To Dose) 1 each IVPB PRN PRN PRN Reason: Pharmacy to dose Morphine Sulfate (Morphine) 4 mg SLOW IVP Q4H PRN PRN Reason: Severe Pain (7-10) Last Admin: 03/21/19 21:07 Dose: 4 mg Ondansetron HCl (Zofran Odt) 4 mg PO Q6H PRN PRN Reason: Nausea/Vomiting Ondansetron HCl (Zofran) 4 mg IVP Q6H PRN PRN Reason: Nausea/Vomiting Saccharomyces Boulardii (Florastor) 250 mg PO DAILY [facility] Last Admin: 03/22/19 08:12 Dose: 250 mg Senna/Docusate Sodium (Senokot S) 2 tab PO BID PRN PRN Reason: Constipation Sodium Chloride (Flush - Normal Saline) 10 ml IVF Q12HR [facility] Last Admin: 03/22/19 08:14 Dose: 10 ml Sodium Chloride (Flush - Normal Saline) 10 ml IVF PRN PRN PRN Reason: Saline Flush Last Admin: 03/19/19 21:17 Dose: 10 ml Sodium Chloride ([place] Nasal [place] 0.65%) 0 ml EA NARE QIDPRN PRN PRN Reason: Nasal Congestion Throat Lozenges (Cepastat Lozenges) 1 sumeet PO Q2H PRN PRN Reason: Sore Throat Zolpidem Tartrate (Ambien) 5 mg PO HSPRN PRN PRN Reason: Insomnia Last Admin: 03/21/19 23:05 Dose: 5 mg
[2019-03-22] MEDS: Loperamide HCl 2 MG CAP PO PRN (15:33)
[2019-03-22] MEDS ORDERED: traMADol HCl 50 MG TAB PO PRN ×2 (17:13)
[2019-03-22] MEDS ORDERED: Acetaminophen 325 MG TAB PO PRN ×2 (17:14→17:16)
--- NOTE | 2019-03-22 18:01 | DIS ---
DATE OF ADMISSION: 03/18/2019 DATE OF DISCHARGE: 03/22/2019 PRIMARY CARE PHYSICIAN: [facility] Call Admission. DISCHARGE DISPOSITION: Longterm. PRIMARY DISCHARGE DIAGNOSIS: Abdominal wall cellulitis and abscess, status post drainage. SECONDARY DISCHARGE DIAGNOSES: Diabetes, type 2; obesity with BMI 30. PRIMARY PROCEDURE/OPERATION: CT-guided abscess drainage. RADIOLOGICAL INVESTIGATION: Abdomen and pelvis CT scan. SIGNIFICANT LABORATORY DATA: WBC 14.4, hemoglobin 13.6, platelets 560. INR 1.0. Sodium 137, creatinine 0.95. CRP 4.48. Urinalysis unremarkable. Culture from abscess was negative. C diff, negative. DISCHARGE MEDICATIONS: 1. Augmentin 875 mg twice daily for 7 days. 2. Tylenol 650 mg q.6 hourly p.r.n. 3. Florastor 250 mg p.o. daily for 7 days. 4. Senokot two tablets twice daily p.r.n. 5. Tramadol 100 mg q.6 hourly p.r.n. CONTRAINDICATION: None. CODE STATUS: Full code. INPATIENT CONSULTANTS: Dr. Hastings and Dr. Gianes. TEST RESULTS PENDING ON DISCHARGE: None. ALLERGIES: CLINDAMYCIN. DISCHARGE PLAN: Posthospital, the patient will follow up with primary care physician. The patient is discharged to senior care. HOSPITAL COURSE: A 38-year-old male with above-mentioned medical problem, who was admitted by Dr. Antonio Brush. Please see his H and P for further details. The patient was admitted for abdominal wall erythema, warmth, tenderness, and fluctuance. He was diagnosed with cellulitis and abscess of the abdominal wall. He was treated with vancomycin and Zosyn while in hospital. He was consulted by Dr. Hastings. The patient was also required CT-guided abscess drainage. His abscess drainage culture was negative by the time of discharge, but it was not MRSA. On the day of discharge, his output from the drain was completely absent and that is why drain was removed and Dr. Gaines discharged this patient. The patient was seen by me earlier today. Please see my progress note for more detail. Job ID: [id number]
[2019-03-22] MEDS ORDERED: Amoxicillin/Potassium Clav 875 MG TAB PO SCH (21:00)
--- NOTE | 2019-03-23 01:08 | DIS ---
DATE OF ADMISSION: 03/18/2019 DATE OF DISCHARGE: 03/22/2019 ADMITTING PHYSICIAN: Dr. Javi Armstrong with [facility]. ASSOCIATE PROFESSOR OF MEDIA ARTS: Dr. Hastings with General Surgery. ADMITTING DIAGNOSIS: Abdominal wall abscess. DISCHARGE DIAGNOSIS: Abdominal wall abscess, resolved. PROCEDURE PERFORMED: Percutaneous drainage of abdominal wall abscess on 03/19/2019. HISTORY AND HOSPITAL COURSE: A 38-year-old inmate of a correctional facility was admitted on 03/18/2019, with abdominal wall abscess. Options for treatment were given to the patient, who chose percutaneous drainage of the abdominal wall abscess. Procedure was performed on 03/19/2019 without incident. The patient was placed on Zosyn and vancomycin. Microbiology report is consistent with many gram-negative rods, many gram-positive rods as well as a few gram-positive cocci in clusters. I reviewed this findings with Microbiology today and indicated that the growth pattern of the gram-positive cocci is inconsistent with MRSA. The patient has done well, denies any abdominal pain. He is tolerating general diet, having normal bowel and urinary function. He has remained hemodynamically stable and afebrile through this hospitalization. Clinical examination today reveals a man in good spirits. Abdomen is nontender and nondistended. The abscess drainage catheter is inspected. No gross purulence is present. An attempt to flush with 5 mL of sterile saline yielded no results, in fact trying to instill the saline was extravasating around the catheter entrance site. There is no erythema or induration around the wound itself. The abscess cavity has apparently completely collapsed. The catheter was removed without incident and a Band-Aid was placed over the wound. The patient is therefore being discharged today back to the correctional Facility with the following instructions. 1. He is to continue with Augmentin 875 mg 1 p.o. b.i.d. for 7 days. 2. He may take Tylenol 650 mg p.o. q.6 hours p.r.n. pain, alternating days with tramadol 50 mg 1 to 2 p.o. q.6 hours p.r.n. moderate to severe pain. 3. He may follow up with Dr. Hastings in the General Surgery Clinic as needed. 4. Resume all pre-hospital medications as prescribed by his primary care physician in the correctional facility. The patient indicates understanding of information given. I have answered his questions. Job ID: [id number]
== END 2019-03-22 19:14 | DRG 872 ==
LOC: ERS 14:42 → ONC 19:23 → OBSVTOIN 19:23
PROVIDERS: ADMIT Emergency Medicine; ATTEND Emergency Medicine
PROC: 0W9F30Z Drainage of Abdominal Wall with Drainage Device, Percutaneous Approach (ICD-10-PCS; principal; 2019-03-19)
DX: A41.9 Sepsis, unspecified organism (principal); L02.211 Cutaneous abscess of abdominal wall; E11.9 Type 2 diabetes mellitus without complications; E66.9 Obesity, unspecified; N18.2 Chronic kidney disease, stage 2 (mild); R74.8 Abnormal levels of other serum enzymes; Z90.49 Acquired absence of other specified parts of digestive tract; Z90.5 Acquired absence of kidney; Z88.8 Allergy status to other drugs, medicaments and biological substances; Z87.891 Personal history of nicotine dependence; Z68.30 Body mass index [BMI] 30.0-30.9, adult
CPT/HCPCS: 36415; 49020; 74177; 77012; 80048; 80053; 80202; 81003; 81015; 83605; 83690; 85025; 85060; 85610; 85730; 86140; 87070; 87081; 87205; 87324; 87449; 89051; 96361; 96374; 96375; C1729; J1885; J2185; J2250; J2270; J2405; J2543; J3010; J3370; J3490; J7050